=== PATIENT | female | born 1975 | race Caucasian/White ===

== ENCOUNTER → 2016-06-26 | Outpatient (CLI) | payer OTHER ==
[~2016-06-26] MED LIST: ASPIR-LOW81 MG PO; ESTROGEL0.06% TD; NO HOME MEDICATIONS; NORCO 325 MG-51 TAB PO; NORCO 325 MG-7.1 TAB PO; PHENERGAN 25 TA25 MG PO; PHENERGAN25 MG RC; PREMARIN .3MG0.3 MG PO; PRENATAL VITAMI1 TA5 PO; PROGESTERONE
== END ==
LOC: COL.RAD 11:00
DX: E04.1 Nontoxic single thyroid nodule (principal); M79.9 Soft tissue disorder, unspecified

== ENCOUNTER → 2016-07-06 | Outpatient (CLI) | payer OTHER | LOC: COL.LAB 14:44 | DX: E06.5 Other chronic thyroiditis (principal) ==

== ENCOUNTER → 2016-07-26 | Outpatient (CLI) | payer OTHER | LOC: COL.LAB 14:19 | DX: E06.5 Other chronic thyroiditis (principal) ==

== ENCOUNTER → 2016-09-10 | Outpatient (CLI) | payer OTHER | LOC: COL.LAB 12:14 | DX: R59.1 Generalized enlarged lymph nodes (principal) ==

== ENCOUNTER 2019-06-24 20:41 | Emergency (ER) | payer OTHER ==
[~2019-06-24] VITALS: Ht 162.6 cm; Wt 92.7 kg
[2019-06-24 23:51] VITALS: BP 108/53; PULSE 83; TEMP 98.7
== END 2019-06-24 23:50 | disposition home or self-care (01) ==
LOC: COL.ER 20:41
DX: K62.89 Other specified diseases of anus and rectum (principal)
CPT/HCPCS: J1170; J7030